=== PATIENT | male | born 1945 | race Caucasian/White ===

== ENCOUNTER 2017-05-16 12:32 | Inpatient (IN) | payer OTHER, BC ==
[~2017-05-16] VITALS: Ht 170.2 cm; Wt 93.4 kg
[2017-05-16 14:29] VITALS: BP 177/72
[2017-05-16] MEDS ORDERED: LATANOPROST2.5 ML BOTH EYES (14:51)
[2017-05-16] MEDS ORDERED: NORVASC2.5 MG PO (15:04)
[2017-05-16] MEDS ORDERED: PEPCID20 MG PO (15:04)
[2017-05-16] MEDS ORDERED: C COMPLEX500 MG PO (15:05)
[2017-05-16] MEDS ORDERED: DAILY VALUE1 EACH PO (15:07)
[2017-05-16] MEDS ORDERED: SINGULAIR10 MG PO (15:07)
[2017-05-16] MEDS ORDERED: OXYCONTIN10 MG PO (15:08)
[2017-05-16] MEDS ORDERED: LIPITOR10 MG PO (15:08)
[2017-05-16] MEDS ORDERED: HYDROCHLOROTHIA25 MG PO (15:08)
[2017-05-16] MEDS ORDERED: COLACE100 MG PO (15:09)
[2017-05-16] MEDS ORDERED: ROBAXIN750 MG PO (15:09)
[2017-05-16] MEDS ORDERED: PERCOCET 5/31 TABLET PO (15:12)
[2017-05-16] MEDS ORDERED: PROVENTIL,2.5 MG/0.5 AEROSOL (15:12)
[2017-05-16] MEDS ORDERED: MILK OF MAGNESI10 ML PO (15:14)
[2017-05-16] MEDS ORDERED: ADVAIR 250/501 DISK IH (15:16)
[2017-05-16] MEDS ORDERED: CYCLOBENZAPRINE10 MG PO (15:18)
[2017-05-16 17:05] VITALS: BP 150/76
[2017-05-17 05:07] VITALS: BP 142/75
[2017-05-17 05:51] LABS: EOSINOPHIL (%) 0.1 % (0-5); HEMATOCRIT 33.5 % (38.0-50.0); IMMATURE GRANULOCYTE (%) 0.4 % (0.0-0.7); MCH 31.3 PG (29.0-34.0); MCHC 33.7 G/DL (30.0-36.0); MCV 92.8 FL (86-99); MONOCYTE (%) 8.4 % (3-12); MONOCYTE COUNT 0.9 K/uL (0-0.8); NEUTROPHIL (%) 72.9 % (45-76); PLATELET COUNT 180 K/uL (156-360); RBC DIS.WIDTH-CV 13.2 % (11.8-14.6); WHITE BLOOD COUNT 10.9 K/uL (4.1-10.2)
[2017-05-17 06:07] LABS: RED BLOOD COUNT 3.61 M/uL (4.00-5.50)
[2017-05-17 06:18] LABS: ALKALINE PHOSPHATASE 48 IU/L (3-129); ANION GAP 12 MEQ/L (2-14); CHLORIDE 103 MEQ/L (99-109); GFR ESTIMATE (CALCULATED) > 59 mL/min/; GLUCOSE 118 mg/dL (70-99); POTASSIUM 3.3 MEQ/L (3.7-5.4); SAMPLE HEMOLYSIS CHECK 0; SAMPLE ICTERIC CHECK 0; SAMPLE LIPEMIA CHECK 0; SODIUM 140 MEQ/L (136-147); TOTAL BILIRUBIN 0.7 MG/DL (0.0-1.0); UREA NITROGEN (BUN) 16 mg/dL (9-23)
[2017-05-17 10:59] VITALS: BP 151/78
[2017-05-17 15:36] VITALS: BP 159/74
[2017-05-17 16:09] LABS: EOSINOPHIL (%) 0.1 % (0-5); HEMATOCRIT 35.8 % (38.0-50.0); IMMATURE GRANULOCYTE (%) 0.5 % (0.0-0.7); IMMATURE GRANULOCYTE COUNT 0.1 K/uL; INSTRUMENT ABS NEUTROPHIL CT 8.8 K/uL; LYMPHOCYTE COUNT 1.8 K/uL (1.0-2.8); MCH 29.7 PG (29.0-34.0); MCHC 32.4 G/DL (30.0-36.0); MCV 91.8 FL (86-99); MEAN PLAT.VOLUME 10.1 uM^3 (9.0-12.4); MONOCYTE (%) 8.8 % (3-12); NEUTROPHIL (%) 75.3 % (45-76); NEUTROPHIL COUNT 8.8 K/uL (1.8-6.4); PLATELET COUNT 202 K/uL (156-360); RBC DIS.WIDTH-CV 13.2 % (11.8-14.6); RBC DIS.WIDTH-SD 44.2 % (39-53); WHITE BLOOD COUNT 11.6 K/uL (4.1-10.2)
[2017-05-17 19:52] LABS: ADD MIUA? NO; BILIRUBIN NEGATIVE; BLOOD NEGATIVE; COLOR YELLOW ((YELLOW)); GLUCOSE (STRIP) NEGATIVE; KETONES 20; LEUKOCYTES NEGATIVE; NITRITE NEGATIVE; PROTEIN (STRIP) 30; UROBILINOGEN 0.2 MG/DL (0.2-1.0)
[2017-05-18 05:03] VITALS: BP 151/73
[2017-05-18 07:10] LABS: ANION GAP 6 MEQ/L (2-14); CHLORIDE 101 MEQ/L (99-109); GFR ESTIMATE (CALCULATED) > 59 mL/min/; GLUCOSE 105 mg/dL (70-99); POTASSIUM 3.6 MEQ/L (3.7-5.4); SAMPLE HEMOLYSIS CHECK 0; SAMPLE ICTERIC CHECK 0; SAMPLE LIPEMIA CHECK 0; SODIUM 137 MEQ/L (136-147); UREA NITROGEN (BUN) 16 mg/dL (9-23)
[2017-05-18 08:06] LABS: HEMATOCRIT 32.4 % (38.0-50.0); MCH 31.2 PG (29.0-34.0); MCV 91.8 FL (86-99); MEAN PLAT.VOLUME 10.6 uM^3 (9.0-12.4); PLATELET COUNT 203 K/uL (156-360); RBC DIS.WIDTH-CV 13.2 % (11.8-14.6); RBC DIS.WIDTH-SD 44.9 % (39-53); RED BLOOD COUNT 3.53 M/uL (4.00-5.50); WHITE BLOOD COUNT 9.4 K/uL (4.1-10.2)
[2017-05-18 15:14] VITALS: BP 128/91
[2017-05-19 06:11] VITALS: BP 157/74
[2017-05-19 06:43] LABS: EOSINOPHIL (%) 3.1 % (0-5); EOSINOPHIL COUNT 0.3 K/uL (0-0.3); HEMATOCRIT 32.8 % (38.0-50.0); IMMATURE GRANULOCYTE (%) 0.4 % (0.0-0.7); INSTRUMENT ABS NEUTROPHIL CT 5.7 K/uL; LYMPHOCYTE COUNT 1.4 K/uL (1.0-2.8); MCH 30.2 PG (29.0-34.0); MCHC 32.9 G/DL (30.0-36.0); MCV 91.6 FL (86-99); MEAN PLAT.VOLUME 9.4 uM^3 (9.0-12.4); MONOCYTE COUNT 0.8 K/uL (0-0.8); NEUTROPHIL (%) 69.4 % (45-76); NEUTROPHIL COUNT 5.7 K/uL (1.8-6.4); PLATELET COUNT 236 K/uL (156-360); RBC DIS.WIDTH-SD 43.8 % (39-53); RED BLOOD COUNT 3.58 M/uL (4.00-5.50); WHITE BLOOD COUNT 8.3 K/uL (4.1-10.2)
[2017-05-19 07:15] LABS: ANION GAP 8 MEQ/L (2-14); CHLORIDE 102 MEQ/L (99-109); GFR ESTIMATE (CALCULATED) > 59 mL/min/; GLUCOSE 111 mg/dL (70-99); POTASSIUM 3.9 MEQ/L (3.7-5.4); SAMPLE HEMOLYSIS CHECK 0; SAMPLE ICTERIC CHECK 0; SAMPLE LIPEMIA CHECK 0; SODIUM 139 MEQ/L (136-147); UREA NITROGEN (BUN) 17 mg/dL (9-23)
[2017-05-19 15:36] VITALS: BP 139/81
[2017-05-20 05:17] VITALS: BP 168/86
[2017-05-20 14:55] VITALS: BP 150/74
[2017-05-21 05:52] VITALS: BP 150/65
[2017-05-21 15:41] VITALS: BP 155/77
[2017-05-22 05:34] VITALS: BP 161/72
[2017-05-22 14:57] VITALS: BP 155/72
[2017-05-23 05:18] VITALS: BP 168/77
[2017-05-23 15:30] VITALS: BP 152/70
[2017-05-24 04:58] VITALS: BP 152/73
[2017-05-24 15:25] VITALS: BP 154/75
[2017-05-24] MEDS ORDERED: DULOXETINE HCL20 MG PO (17:24)
[2017-05-24 21:07] LABS: MCH 30.5 PG (29.0-34.0); MCHC 33.2 G/DL (30.0-36.0); MCV 91.8 FL (86-99); MEAN PLAT.VOLUME 9.1 uM^3 (9.0-12.4); PLATELET COUNT 498 K/uL (156-360); RBC DIS.WIDTH-CV 13.2 % (11.8-14.6); RBC DIS.WIDTH-SD 44.5 % (39-53); RED BLOOD COUNT 4.03 M/uL (4.00-5.50); WHITE BLOOD COUNT 12.1 K/uL (4.1-10.2)
[2017-05-24 21:35] LABS: ANION GAP 14 MEQ/L (2-14); CHLORIDE 101 MEQ/L (99-109); GFR ESTIMATE (CALCULATED) > 59 mL/min/; GLUCOSE 114 mg/dL (70-99); POTASSIUM 4.1 MEQ/L (3.7-5.4); SAMPLE HEMOLYSIS CHECK 0; SAMPLE ICTERIC CHECK 0; SAMPLE LIPEMIA CHECK 0; SODIUM 137 MEQ/L (136-147); UREA NITROGEN (BUN) 16 mg/dL (9-23)
[2017-05-25 04:41] VITALS: BP 166/78
== END 2017-05-25 09:53 | DRG 564 ==
LOC: 3WEST 12:32 → ENPENDDIS 05-25 → 3WEST 05-25 09:53
PROVIDERS: Internal Medicine; Physical Medicine & Rehabilitation Pain Medicine; Physician Assistant; Psychiatry & Neurology Neurology
PROC: F07M7ZZ Manual Therapy Techniques Treatment of Musculoskeletal System - Whole Body (ICD-10-PCS; principal; 2017-05-16)
DX: M21.371 Foot drop, right foot (principal); G92 Toxic encephalopathy; R50.82 Postprocedural fever; M48.07 Spinal stenosis, lumbosacral region; M54.10 Radiculopathy, site unspecified; M62.81 Muscle weakness (generalized); G89.18 Other acute postprocedural pain; W01.0XXA Fall on same level from slipping, tripping and stumbling without subsequent striking against object, initial encounter; E78.5 Hyperlipidemia, unspecified; D72.829 Elevated white blood cell count, unspecified; F32.9 Major depressive disorder, single episode, unspecified; I10 Essential (primary) hypertension; E87.6 Hypokalemia; J45.909 Unspecified asthma, uncomplicated; G89.29 Other chronic pain; K59.00 Constipation, unspecified; Z91.81 History of falling; Z85.828 Personal history of other malignant neoplasm of skin; Z79.899 Other long term (current) drug therapy; Z87.442 Personal history of urinary calculi; Z68.32 Body mass index [BMI] 32.0-32.9, adult; Z72.0 Tobacco use
CPT/HCPCS: 70450; 71020; 72100; 74020; 80048; 80053; 81003; 82306; 82607; 82746; 83605; 84443; 85025; 85025 91; 85027; 87040; 87086; 87493; 93970; 94640; 94640 76; 97110 GO; 97530 GP; 99202; J0696; J7050